=== PATIENT | female | born 1975 | race Caucasian/White ===

== ENCOUNTER 2017-01-24 11:16 | Emergency (ER) | payer MEDICAID ==
[~2017-01-24] VITALS: Ht 170.2 cm; Wt 111.6 kg
[~2017-01-24 11:16] MED LIST: ALBUTEROL-200 PUFFS/ IH; ETODOLAC200 MG PO; FLEXERIL10 MG PO; HYDROCODONE1 TABLET PO; LORTAB 5/500 501 TAB PO; SULFAMETHOXAZOL1 TA6 PO
--- OUTSIDE RECORDS SUMMARY | 2017-01-24 11:22 | External Medical Summary Rpt | CCD ---
Author Author [employer] Organization [employer] Address Unknown Phone Unavailable Purpose Continuity of Care Document - through 2016
--- OUTSIDE RECORDS SUMMARY | 2017-01-24 11:22 | External Medical Summary Rpt | CCD ---
Author Author , ERICA LUTHER Address Unknown Phone [email or web address] Purpose Continuity of Care Document - through 2016 Problems Code Diagnosis DOS Provider Status J40 BRONCHITIS, NOT SPECIFIED ACUTE OR CHRONIC M54.30 SCIATICA, UNSPECIFIED SIDE
--- OUTSIDE RECORDS SUMMARY | 2017-01-24 11:22 | External Medical Summary Rpt | CCD ---
Author Author , ERICA LUTHER Address Unknown Phone Purpose Continuity of Care Document - through 2016 Problems Code Diagnosis DOS Provider Status J40 BRONCHITIS, NOT SPECIFIED ACUTE OR CHRONIC M54.30 SCIATICA, UNSPECIFIED SIDE
--- OUTSIDE RECORDS SUMMARY | 2017-01-24 11:23 | External Medical Summary Rpt ---
Author Author [employer] Reddy, HOMA Reddy Organization [employer] Address Unknown Phone Unavailable
--- OUTSIDE RECORDS SUMMARY | 2017-01-24 11:23 | External Medical Summary Rpt | CCD ---
Demographics Preferred Language Estonian Marital Status Unknown Worship Affiliation Unknown Race Unknown Ethnic Group Unknown Author Author , ERICA LUTHER Address Unknown Phone Immunization No patient found.
--- OUTSIDE RECORDS SUMMARY | 2017-01-24 11:23 | External Medical Summary Rpt | CCD ---
Demographics Preferred Language Swazi Marital Status Unknown Pentecostal Affiliation Unknown Race Unknown Ethnic Group Unknown Author Author , ERICA LUTHER Address Unknown Phone Immunization No patient found.
--- NOTE | 2017-01-24 11:52 | Urgent Treatment Center Report ---
History of Present Issue Date/Time Seen by Provider 01/24/17 1152 Visit Reason Pt arrived:Walked Presenting Problem:HEADACHE, CONGESTED X3 DAYS Location if Accident: Onset of symptoms date/time:/ or onset unknown for:MEDICAL HX UNKNOWN Have you (or family members/close friends) recently traveled outside the [place]? N If Yes, where/when: Have you had exposure to infectious disease within the past month? TB? Other? Specify: Patient state that she has been having flu like symptoms State that she has been having sinus pain and pressure and feeling like her head is all stopped up State that she has been having body aches, chills and feeling pressure behind her eyes State that she is not sure if she has a sinus infection or the flu ALLERGIES Coded Allergies: No Known Allergies (03/25/16) Home Medications Active Scripts Albuterol (Albuterol-Hfa Inhaler) 1 PUFF IH Q6HP PRN bronchospasm #1 INH Prov: 03/25/16 Cyclobenzaprine Hcl (Flexeril) 10 MG PO TID #30 TAB Prov: 06/03/16 History Medical History General Angina: No OK: No Hypertension? No Hyperlipidemia? Yes CHF? No COPD? No Asthma? No Hernia? No CVA? No Seizures? No Diabetes? No UTI? Yes Stones? No GB Disease: No Hepatitis? No Cataracts? No Glaucoma? No MRSA? No TB? No Cancer? 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 Respiratory cough, denies shortness of breath, denies wheezing Gastrointestinal denies diarrhea, nausea, denies vomiting Psychiatric/Neurological headache Physical Exam Vital Signs Vital Signs Date Time Temp Pulse Resp B/P Pulse O2 O2 Flow FiO2 Ox Delivery Rate 01/24 1126 98.1 88 16 122/75 96 General Appearance Patient appears ill sitting on exam table, eyes watering, sniffling Ear, Nose, Throat sinus pain/drainage, nasal congestion, Throat red irritated drainage noted, tenderness noted frontal sinuses, nares red Respiratory Status Yes: trachea midline, chest symmetrical, non tender chest. No: respiratory distress. Cardiovascular normal exam, regular rate/rhythm, no peripheral edema Neurologic alert, normal exam, oriented x 3 Medical Decision Making LABS/Meds/Orders Pt receiving controlled substance in ED? No Departure Departure Time of Disposition 1213 Disposition DC Home or Self Care(routine) Clinical Impression Primary Impression: Upper respiratory infection Qualifiers: URI type: unspecified URI Qualified Code: J06.9 - Acute upper respiratory infection, unspecified Condition STABLE Patient Instructions DI for Nasal Congestion, Sore Throat Additional Instructions * Monitor Temp. Tylenol and/or Ibuprofen as needed. ER if fever is no less than 101 despite alternating Tylenol and Ibuprofen * Encourage fluids, water, Gatorade, powerade, pedialyte if /toddler/or child * Warm salt water gargles for throat irritation *Warm fluids *Sore throat lozenges *Sleep elevated *humidifier or vaporizer Lots of rest Increase fluids, water, Gatorade, powerade *Flonase 2 sprays each nostril daily but may take 2-3 days to notice improvement with it *Bromfed may cause drowsiness. Know how it effect you or your child. Before driving, caring for small children or sending your child to school *Your throat swab was sent to lab for culture. Those results area typically sent to your primary care physician. Be sure to follow up in 2-3 days if no improvement so they can review those results and treat if necessary If you dont have primary care I recommend you get one, but in the mean time you will have to return to a walk in clinic Follow up IMMEDIATELY for new or worsening of symptoms OR no noticeable improvement over the next 48-72 hours. 911 immediately for any life threatening symptoms such as chest pain or difficulty breathing Discharge Counseling Counseled pt/family regarding diagnosis, test results, medications/RX, home care, follow up needs Prescriptions Current Visit Scripts Azithromycin (Zithromycin (Z-JUSTIN) 250MG Tab) 250 MG PO DAILY #6 TAB TAKE TWO (2) TABLETS ON DAY 1, THEN ONE (1) TABLET DAY #2 THRU #5 D-METHORPHAN HB/P-EPD HCL/BPM (Bromfed Dm Cough Syrup) 10 ML PO Q4HP PRN cough #120 SYR Fluticasone Propionate (Flonase 50 Mcg Nasal [place]) 2 SPRAY NA DAILY #1 BOT Methylprednisolone (Medrol Dose Justin) 4 MG PO UD #1 JUSTIN TAKE DIRECTED ON PACKAGING at 1216
[2017-01-24] MEDS ORDERED: ZITHROMAX Z PA250 MG PO (12:16)
[2017-01-24] MEDS ORDERED: MEDROL 4MG. DOSE4 MG PO (12:16)
[2017-01-24] MEDS ORDERED: BROMFED DM COU118 ML PO (12:16)
[2017-01-24] MEDS ORDERED: FLONASE 50 MCG16 GM (12:16)
[2017-01-24 12:28] VITALS: BP 128/82
== END 2017-01-24 12:28 | disposition home or self-care (01) ==
LOC: UTC 11:16
DX: J06.9 Acute upper respiratory infection, unspecified (principal); F17.210 Nicotine dependence, cigarettes, uncomplicated